=== PATIENT | female | born 1935 | race Caucasian/White ===

== ENCOUNTER 2016-05-13 09:35 | Emergency (ER) | payer OTHER, MEDICARE ==
[~2016-05-13] VITALS: Ht 152.4 cm; Wt 63.5 kg
--- NOTE | 2016-05-13 10:17 | ED GENERAL ADULT ---
History of Present Illness General Chief Complaint: General Adult Stated Complaint: RX TO MRI Source: patient Exam Limitations: no limitations Vital Signs & Intake/Output Vital Signs & Intake/Output Vital Signs Date Time Temp Pulse Resp B/P Pulse O2 O2 Flow FiO2 Ox Delivery Rate 05/13 1136 97.7 77 22 140/63 98 05/13 0940 97.9 92 20 134/76 97 Room Air Allergies Coded Allergies: Sulfa (Sulfonamide Antibiotics) (RASH 07/18/15) codeine (UNKNOWN 07/18/15) Reconcile Medications Cephalexin (Keflex) 500 MG CAPSULE 1 CAP PO BID uti Cholecalciferol (Vitamin D3) 1,000 UNIT TABLET 1 TAB PO DAILY SUPPLEMENT ( Reported) Olmesartan/Hydrochlorothiazide (Benicar Hct 20-12.5 MG Tablet) 20 MG-12.5 MG TABLET 1 TAB PO DAILY HEART (Reported) Triage Note: PT STATES SHE HAD AN MRI YESTERDAY WITH [facility]. PT STATES SHE WAS UP ALL NIGHT WITH BURNING SENSATION IN VAGINA AND SOB. PT ALSO STATES ABDOMINAL PAIN AND THIS MORNING SHE HAD A BLOODY NOSE Triage Nurses Notes Reviewed? yes HPI: Patient is an 80 year old female presents complaining of dyspnea, sudden onset yesterday evening. Dyspnea is mild to moderate at rest, worsens with talking. Patient denies any change with ambulation. No associated orthopnea. Patient had a fluoroscopic guided right shoulder arthrogram yesterday. Patient also reports Vaginal burning x 4-5 days, denies discharge. Patient was started on estradiol vaginal cream 2 weeks ago. Lower abdominal pain 4-5 days, was a sharp pain, patient had a bowel movement 2 days ago which improved her pain, pain is currently mild. Denies dysuria, cough, chest pain, fevers, chills , orthopnea, lower extremity edema (TRENT RODRIGUEZ) Past History Travel History Traveled to [place] past 21 day No Medical History Any Pertinent Medical History? see below for history Cardiovascular: hypertension Cancer(s): breast cancer Surgical History Surgical History: hysterectomy Psychosocial History Who do you live with Other (see notes) What is your primary language Yemeni Tobacco Use: Never used ETOH Use: denies use Illicit Drug Use: denies illicit drug use Family History Hx Contributory? No (RTENT RODRIGUEZ) Review of Systems Review of Systems Constitutional: Denies: chills, fever. EENTM: Reports: no symptoms. Respiratory: Reports: short of breath. Denies: cough, orthopnea, sputum production, wheezing. Cardiovascular: Denies: chest pain, orthopena, peripheral edema. GI: Reports: see HPI, constipation. Denies: diarrhea, nausea, vomiting. Genitourinary: Reports: see HPI. Musculoskeletal: Reports: no symptoms. Skin: Reports: erythema (hussain-vaginal). Neurological/Psychological: Reports: no symptoms. Hematologic/Endocrine: Reports: no symptoms. Immunologic/Allergic: Reports: no symptoms. (TRENT RODRIGUEZ) Physical Exam Physical Exam General Appearance: well developed/nourished, alert, awake Head: atraumatic, normal appearance Eyes: Bilateral: normal appearance, PERRL, EOMI. Ears, Nose, Throat: hearing grossly normal Neck: normal inspection, supple, full range of motion Respiratory: no respiratory distress Cardiovascular: regular rate/rhythm (no murmur) Gastrointestinal: normal bowel sounds, soft, minimal lower abdominal tenderness diffusely Back: normal inspection, normal range of motion, no vertebral tenderness Extremities: normal inspection, normal capillary refill, normal range of motion Neurologic/Psych: no motor/sensory deficits, awake, alert, oriented x 3, normal gait Skin: mild erythema perivaginal. Nontender, no warmth Core Measures ACS in differential dx? Yes ASA ordered for poss ACS? No-ACS ruled out CVA/TIA Diagnosis: No Severe Sepsis Present: No Septic Shock Present: No (TRENT RODRIGUEZ) Progress Differential Diagnoses I considered the following diagnoses in my evaluation of the patient: Pneumonia, CHF, acute coronary syndrome, pulmonary embolism, anemia, urinary tract infection, intra-abdominal infection, vaginitis, medication reaction, allergic reaction Plan of Care: Orders Procedure Date/time Status POTASSIUM HYDROXIDE (YUE) 05/13 1059 Complete D-DIMER 05/13 1029 Complete URINALYSIS 05/13 1018 Complete TROPONIN LEVEL 05/13 1018 Complete LIPASE 05/13 1018 Complete LACTIC ACID 05/13 1018 Complete COMPREHENSIVE METABOLIC PANEL 05/13 1018 Complete CBC WITHOUT DIFFERENTIAL 05/13 1018 Complete EKG 05/13 0942 Active Laboratory Tests 05/13/16 1040: Urinalysis LIGHT H, Urine Color YEL, Urine Clarity HAZY H, Urine pH 6.0, Ur Specific Aldrich 1.010, Urine Protein NEG, Urine Ketones NEG, Urine Nitrite NEG, Urine Bilirubin NEG, Urine Urobilinogen 0.2, Ur Leukocyte Esterase MOD H, Ur Microscopic SEDIMENT EXAMINED, Urine RBC 3-5, Urine WBC 15-25 H, Ur Epithelial Cells MOD H, Urine Bacteria MANY H, Urine Hemoglobin MOD H, Urine Glucose NEG 05/13/16 1037: Anion Gap 10, Estimated GFR 43 L, BUN/Creatinine Ratio 15.0, Glucose 126 H, Lactic Acid 1.2, Calcium 10.3 H, Total Bilirubin 1.4 H, AST 24, ALT 27, Alkaline Phosphatase 62, Troponin I < 0.01, Total Protein 7.3, Albumin 4.4, Globulin 2.9, Albumin/Globulin Ratio 1.5, Lipase 96, D-Dimer < 200, CBC w Diff NO MAN DIFF REQ, RBC 4.62, MCV 87.3, MCH 29.7, RDW 13.2, MPV 10.5 H, Gran % 72.3, Lymphocytes % 18.4 L, Monocytes % 7.3, Eosinophils % 1.5, Basophils % 0.5 , Absolute Granulocytes 6.0, Absolute Lymphocytes 1.5, Absolute Monocytes 0.6, Absolute Eosinophils 0.1, Absolute Basophils 0, PUBS MCHC 34.0 Microbiology 05/13 1104 GENITAL: YUE Preparation - COMP 05/13/2016 11:54:52 AM: Results discussed with patient and her . Discussed with and seen by Dr. Abbasi. Suspect that patient's vaginal burning and the perivaginal erythema may be related to the Divigel. Patient instructed to contact her roping tender for further evaluation and instruction. EKG shows no ischemic changes, troponin negative, d-dimer negative, chest x-ray negative with dyspnea greater than 12 hours. Appears stable to follow up with her primary care provider for further evaluation of her dyspnea. (SHERMAN BOWIE,TRENT) Diagnostic Imaging: Viewed by Me: Radiology Read. Discussed w/RAD: Radiology Read. Radiology Impression: PATIENT: MADYSON HARRISON PRESENT AGE: 80 PATIENT ACCOUNT NO: [id number] : 34 LOCATION: [facility] ORDERING PHYSICIAN: TRENT BOWIE SERVICE DATE: 05/13/16 EXAM TYPE: RAD - XRY-CHEST XRAY, PA AND LATERAL EXAMINATION: XR CHEST CLINICAL INFORMATION: Dyspnea COMPARISON: None TECHNIQUE: 2 views of the chest were obtained. FINDINGS : No significant abnormality is noted involving the heart, lungs, mediastinum, bony thorax or soft tissues. IMPRESSION: Unremarkable examination. DICTATED BY: ABILIO FULLER MD DATE/TIME DICTATED:05/13/161046 MEDICAL OFFICE RECEPTIONIST ASSISTANT: SAGAR DATE/TIME TRANSCRIBED:05/13/161046 CONFIDENTIAL, DO NOT COPY WITHOUT APPROPRIATE AUTHORIZATION. <Electronically signed in Other Vendor System> SIGNED BY: ABILIO FULLER MD 05/13/16 1051 Initial ED EKG: normal sinus rhythm 90 bpm, left axis deviation, nonspecific ST/ T-wave abnormalities, unchanged from previous EKG Prior EKG: unchanged Rhythm Strip: normal sinus rhythm (TRENT RODRIGUEZ) Departure Departure Time of Disposition: 1147 Disposition: HOME OR SELF CARE Condition: Stable Clinical Impression Primary Impression: Dyspnea Qualifiers: Dyspnea type: unspecified Qualified Code: R06.00 - Dyspnea, unspecified Secondary Impressions: Vaginitis Qualifiers: Chronicity: acute Qualified Code: N76.0 - Acute vaginitis Referrals: SIMRAN BREWER,JOHN Restrepo (PCP/Family) KELLEY BLUE,TRENT Cote Additional Instructions: Follow up with your primary doctor for further evaluation of your shortness of breath. Call today to be seen tomorrow or early next week. Alos follow up with your roping tender within 1 week for further evaluation, call today for appointment and to discuss the use of your Divigel. Return to the ER if fevers, chest pain, vomiting, or worsening of symptoms. Departure Forms: Customer Survey General Discharge Information Prescriptions: Current Visit Scripts Cephalexin (Keflex) 1 CAP PO BID #[id number] CAP (TRENT RODRIGUEZ) PA/CUSTOMER SERVICE SPECIALIST Co-Sign Statement Statement: ED Attending supervision documentation- [x] I saw and evaluated the patient. I have also reviewed all the pertinent lab results and diagnostic results. I agree with the findings and the plan of care as documented in the PA's/CUSTOMER SERVICE SPECIALIST's documentation. [] I have reviewed the ED Record and agree with the PA's/CUSTOMER SERVICE SPECIALIST's documentation. [] Additions or exceptions (if any) to the PAs/CUSTOMER SERVICE SPECIALIST's note and plan are summarized below: [] (KAILYN BLUE,CLAU Kaminski) Critical Care Note Critical Care Note Critical Care Time: non-applicable (TRENT RODRIGUEZ)
--- NOTE | 2016-05-13 10:51 | RADIOLOGY REPORT ---
EXAMINATION: XR CHEST CLINICAL INFORMATION: Dyspnea COMPARISON: None TECHNIQUE: 2 views of the chest were obtained. FINDINGS: No significant abnormality is noted involving the heart, lungs, mediastinum, bony thorax or soft tissues. IMPRESSION: Unremarkable examination.
[2016-05-13 10:52] LABS: ABSOLUTE BASOPHIL COUNT 0 /CUMM (0.0-0.2); ABSOLUTE EOSINOPHIL COUNT 0.1 /CUMM (0.0-0.7); ABSOLUTE LYMPH COUNT 1.5 /CUMM (1.2-3.4); ABSOLUTE MONOCYTE COUNT 0.6 /CUMM (0.10-0.60); BASOPHIL % 0.5 % (0.0-2.0); EOSINOPHIL % 1.5 % (0-5); GRANULOCYTE % 72.3 % (42.2-75.2); HEMATOCRIT 40.4 % (37-47); MEAN CORPUSCULAR HGB 29.7 PG (27.0-31.0); MEAN CORPUSCULAR VOLUME 87.3 FL (81.0-99.0); MEAN PLATELET VOLUME 10.5 FL (7.4-10.4); PLATELET COUNT 177 /CUMM (130-400); RBC DISTRIBUTION WIDTH 13.2 % (11.5-14.5); RED BLOOD CELL CT 4.62 /CUMM (4.20-5.40); WHITE BLOOD CELL COUNT 8.4 /CUMM (4.8-10.8)
[2016-05-13] MEDS ORDERED: VITAMIN D31000 UNI2 PO (11:16)
[2016-05-13] MEDS ORDERED: BENICAR HCT 201 EACH PO (11:16)
[2016-05-13 11:36] VITALS: BP 140/63
[2016-05-13] MEDS ORDERED: KEFLEX500 M1 PO (11:50)
[2016-06-04] MEDS ORDERED: PREMARIN (08:23)
[2016-06-04] MEDS ORDERED: VITAMIN D2000 UNIT PO (08:24)
== END 2016-05-13 11:57 ==
LOC: ERH 09:35
PROVIDERS: Physician Assistant
DX: R06.00 Dyspnea, unspecified (principal); N76.0 Acute vaginitis
CPT/HCPCS: 81001; 93005; 93010

== ENCOUNTER → 2016-06-09 | Day surgery (SDC) | payer OTHER, MEDICARE ==
[~2016-06-09] VITALS: Ht 152.4 cm; Wt 63.5 kg
[~2016-06-09] MED LIST: BENICAR HCT 201 EACH PO; KEFLEX500 M1 PO; PREMARIN; VITAMIN D2000 UNIT PO; VITAMIN D31000 UNI2 PO
--- NOTE | 2016-06-09 22:42 | Operative Report ---
Operative/Inv Procedure Report Surgery Date: 06/09/16 Name of Procedure: ht shoulder arthroscopy with rotator cuff repair, subcromial decompression, distal clavicle excision, and bicep tenotomy Pre-Operative Diagnosis: Right shouder rotar cuff tear, impingment, AC joint arthritis, and biceps tendonitis. Post-Operative Diagnosis: Right shouder rotar cuff tear, impingment, AC joint arthritis, and biceps tendonitis. Estimated Blood Loss: scant (<10cc) Surgeon/Strap Buckler: KENNEDY BLUE,MACKENZIE Espinal MD, Anesthesia: general endotracheal tube, block Implants: Mitek 6.5mm Healix advance anchors x 2 Mitek 6.5mm Healix Knotless anchors x 2 Drains: None Specimens: None Complications: None Condition: Stable Operative/Procedure Note Note: INDICATION FOR PROCEDURE: Mrs Lucas is an 80 year old female with right shoulder pain and progressive worsening of function. She was seen in 2015, where an MRI revealed an anterior rotator cuff repair. The patient opted to treat the tear conservatively, and participated in physical therapy. Over the past few months her pain increased and she was not able to do participate in her usual activities of daily living. She also reports difficulty sleeping at night due to her discomfort. She presented to clinic to discuss surgical options given her age and the chronicity of the tear. After discussing arthroscopic rotator cuff repair and reverse total shoulder arthroplasty with the patient, her , and her daughter, they have opted to proceed with arthroscopic rotator cuff repair with possible dermal graft augmentation, subacromial decompression, distal clavicle excision, and bicep tenotomy. We discussed the risk of non-healing, failure to regain full range of motion, ongoing pain, blood clots, and the need for additional surgeries in the future. Patient understands and would like to proceed with surgery following medical optimization. OPERATIVE REPORT: Anthony Lucas arrived at [facility] on 06/09/2016. She was met in the pre -operative area, where her medical history was reviewed and her operative extremity was marked. A regional block was performed by the Anesthesia service. The patient was then taken into the operating room and placed supine on the OR table. A time-out procedure was performed in which the patient, the operative extremity, and the procedure were reviewed. She was then induced under general anesthesia and hussain-operative antibiotics were administered. She was then placed in the modified beach chair position. Care was taken to support the head in a neutral position and pad all bony prominences and SCDs were applied to bilateral lower legs. The right upper extremity was prepped and draped in the usual sterile fashion. A standard posterior portal was created to allow introduction of the camera into the glenohumeral joint. The patient had no significant glenohumeral arthritis. The labrum was frayed and subluxed down into the joint. The rotator cuff was noted to be torn from the humeral head, but the rotator cable was still intact on the intraarticular view. An anterior portal was created after localization with a spinal needle. A shaver was introduced into the joint and used to gently debride the labral tissues and synovial tissue for better visualization. A probe was used to move the biceps, which was synovitic as it tracked anterior and down into the groove. Given these findings as well as the labral pathology, the biceps was tenotomized from the superior labrum. An electrocautery device was used to gentle debride the labrum. We then focused on the anterior capsular tissue, which was debrided for better visualization of the subscapularis tendon insertion. No tears were noted. The camera was then taken into the subacromial space. An anterolateral portal was created after localization with a spinal needle and a shaver introduced. The bursal tissue was carefully debrided with a combination of the shaver and cautery. The anterolateral acromion had mild downsloping edge. There was also substantial AC joint arthritis. A high speed leonidas was introduced and use to gently plane the anterolateral acromion using the cutting block technique. The leonidas was then used to resect approximately 4-5mm of bone from the distal clavicle via the anterior portal. The acromial decompression and distal clavicle excision were verified by changing the camera to various portals. Attention was then turned to the rotator cuff tear. A U-shaped tear was noted, involving largely the supraspinatus tendon. There was a small strip of anterior supraspinatus tendon that remain intact and attached to the tuberosity. A posterolateral portal was created and the cuff was mobilized used an atraumatic grasper. The cuff tissue was noted to be in good condition, not overly thing or friable, and mobilized back to the tuberosity without excessive tension. A Passport cannula was placed in the anterolateral portal and an [employer] suture passer used to place a #2 Orthocord suture in the medial anterior and posterior cuff. This was tied in for a side to side repair. The bone of the tuberosity was then prepared. Two medial row 6.5 mm Healix Advance anchors were placed after preparing the holes with a 4.2mm awl. Given the patient's age and osteopenia, we intentionally under-tapped and used large anchors for optimal fixation. The sutures were then passed for horizontal mattresses from anterior to posterior, using the [id number] sutures as a rip-stop the the level of the tear. The sutures were passed but not initially tied. The sutures were pulled, and the cuff tissue came down nicely to the footprint. We then opted to proceed without dermal augmentation. The matress sutures were tied from anterior to posterior and the tied sutures appropriately shuttled. One posterior suture was inadvertently cut, and the stitch pulled out. The cuff still reapproximated nicely to the tuberosity. The arm was then gently abducted and the remaining sutures, including the side-to- side sutures, were then divided and tensioned down to lateral row anchors. Again, we under-tapped with a 4.2mm awl and placed two 6.5mm Healix knotless anchors, one anterior and one posterior. The sutures were individually tensioned before the anchor was fully seated. Both anchors had good purchase in the lateral bone. The remained suture tails were cut. The arm was then taken through a gentle range of motion to evaluate the cuff repair. The tissue was well-approximated without dog-ear flaps or excessive tension. The instruments were removed and any excess fluid was evacuated. The portals were closed with #3-0 prolene. The incisions were dressed with sterile xeroform, gauze, and an ABD, and secured with foam tape. The sling was applied. The patient was then repositioned supine on the OR table and extubated. She was then brought from the OR to the recovery room in stable condition. No graft used Two medial row anchors, two lateral row anchors.
== END ==
LOC: STS 03:31
DX: M75.101 Unspecified rotator cuff tear or rupture of right shoulder, not specified as traumatic (principal); M13.811 Other specified arthritis, right shoulder; E78.5 Hyperlipidemia, unspecified; I10 Essential (primary) hypertension
CPT/HCPCS: J0171; J0690; J2250